=== PATIENT | male | born 1955 | race Caucasian/White ===

== ENCOUNTER 2020-01-29 11:39 | Outpatient (REF) | payer MEDICARE, SELFPAY ==
[2020-01-29 14:47] LABS: Alanine Aminotransferase 24 U/L (0-40); Albumin Level 4.3 g/dL (3.5-5.0); Alkaline Phosphatase 79 U/L (39-117); Anion Gap 14 (12-20); Aspartate Amino Transferase 22 U/L (5-37); Bilirubin Total 0.9 mg/dL (0.0-1.0); Blood Urea Nitrogen 10 mg/dL (9-16); Calcium 9.3 mg/dL (8.4-10.2); Carbon Dioxide 27 mmol/L (22-29); Chloride 99 mmol/L (96-108); Estimated Glomerular Filt Rate > 60; Glucose Random 92 mg/dL (60-115); Potassium 4.8 mmol/l (3.3-5.1); Sodium 135 mmol/L (135-145); Total Protein 7.5 g/dL (6.5-8.0)
== END 2020-01-29 11:40 | disposition home or self-care (01) ==
LOC: HO.10HDL 11:39
PROVIDERS: Visit Provider Family Medicine
DX: G62.9 Polyneuropathy, unspecified (principal)
CPT/HCPCS: 80053

== ENCOUNTER → 2022-05-19 08:45 | Outpatient (REF) | payer MEDICARE, SELFPAY ==
--- NOTE | 2022-05-19 08:52 | ECG_ITS ---
Test Reason : palpitations Blood Pressure : / mmHG Vent. Rate : 078 BPM Atrial Rate : 078 BPM P-R Int : 178 ms QRS Dur : 106 ms QT Int : 388 ms P-R-T Axes : 038 -24 023 degrees QTc Int : 442 ms Sinus rhythm with occasional Premature ventricular complexes Abnormal ECG No previous ECGs available Referred By: Camilo Brown Electronically Signed By:ALLYSSA CATHERINE
== END ==
LOC: HO.CARD 08:45
PROVIDERS: PCP Family Medicine; Visit Provider Family Medicine
DX: R00.2 Palpitations (principal)
CPT/HCPCS: 93005

== ENCOUNTER 2024-12-10 09:04 | Outpatient (AMB) | payer MEDICARE, SELFPAY ==
--- NOTE | 2024-12-10 09:12 | A.OFFPC_ITS ---
Vital Signs 12/10/24 09:14 Height 5 ft 7 in Weight 230 lb 3 oz BMI 36.0 BP 128/62 Blood Pressure Location Lt brachial Position Sitting Respiration 18 Pulse 76 Pulse Source Pulse Oximeter Temp 97.3 F Temp Source Temporal Artery Scan Pulse Oximetry (%) 96 Oxygen Delivery Method Room Air Intake Visit Reasons: new patient Compensation Consulting Manager Required: No Accompanied by: Self / Same As Patient Allergies Seasonal Allergies Allergy (Mild, Verified 12/10/24 09:37) Watery Eye Medication List - Last Reconciled 12/10/24 by Gita Rothman MD acetaminophen 500 mg PO Q6H PRN amlodipine 5 mg PO DAILY atorvastatin (Lipitor) 10 mg PO DAILY cetirizine (Zyrtec) 10 mg PO DAILY PRN coenzyme Q10 (CoQ-10) 100 mg PO DAILY finasteride 5 mg PO DAILY lorazepam 0.5 mg PO DAILY PRN tamsulosin 0.4 mg PO DAILY Tobacco use date assessed: 12/10/24 Fall risk assessment: No Falls in past year Last assessed Fall Risk: 12/10/24 Dental Screening Dental Screen Date: 12/10/24 Did you have a dental visit in the last 12 months?: Yes Did you have a dental problem in the last 6 months where you did not have access to dental care?: No Was dental information given to patient?: Patient has dentist HPI HPI Comments History of Present Illness Details Patient comes today to establish care as a new patient. He has hypertension which has been stable with medications. Complains of occasional muscle twitching involving both hands that happens on a daily basis and started years ago with no pain or numbness in hands. He also has pure hypercholesterolemia on statins and last cholesterol was stable but this will be repeated. On lorazepam for anxiety as needed. On tamsulosin for BPH and this is follow by Urology. Has class 2 obesity with a BMI of 36.1 and was advised to do diet and exercise as tolerated. [facility] Medical History (Updated 12/10/24 @ 09:54 by Gita Rothman MD) Fracture of left tibial plateau Tuberculosis Surgical History (Updated 12/10/24 @ 09:47 by Gita Rothman MD) History of surgery on lower extremity History of right hip replacement History of nephrectomy, right Family History Mother Diabetes Hypertension Arthritis Father Throat cancer Social History (Updated 12/10/24 @ 09:48 by Gita Rothman MD) Household Members: None Both parents involved: No Caregiver staying overnight: No Housing: House Alcohol intake: current Alcohol intake frequency: a few times a week Alcohol type: beer Patient Tobacco Use Status: Never used Tobacco e-Cigarette/Vaping Use: Never Used Advance Directives Date on File: 01/29/20 service: Yes Current occupational status: retired Cognitive needs: No Hearing needs: Yes Vision needs: Yes Questionnaire PHQ-9 Over the last 2 weeks, how often have you been bothered by any of the following problems? 1. Little interest or pleasure in doing things: not at all 2. Feeling down, depressed, or hopeless: not at all 3. Trouble falling or staying asleep, or sleeping too much: not at all 4. Feeling tired or having little energy: not at all 5. Poor appetite or overeating: not at all 6. Feeling bad about yourself - or that you are a failure or have let yourself or your family down: not at all 7. Trouble concentrating on things, such as reading the newspaper or watching television: not at all 8. Moving or speaking so slowly that other people could have noticed. Or the opposite - being so fidgety or restless that you have been moving around a lot more than usual: not at all 9. Thoughts that you would be better off or of hurting yourself in some way: not at all Total score: 0 Depression Screening Interpretation: Negative Depression Screening Done: Yes 83654 - PHQ-9 Billing: Yes Source: Developed by Drs. Miguel Rowe, Remedios Dillard, Brando Rg and colleagues, with an educational robert from [employer]. Thrive Questionnaire Date Thrive assessed: 12/10/24 I am a: Patient What is your living situation today?: I have a steady place to live Within the past 12 months, did the food you bought not last and you didn't have the money to get more?: Never true Within the past 12 months, did you worry whether your food would run out before you got money to buy more?: Never true Do you have trouble paying for medicines?: No Do you have trouble getting transportation to medical appointments?: No Do you have trouble paying your heating and electricity bill?: No Do you have trouble taking care of your child, family member or friend?: No Do you have trouble with day-to-day activities such as bathing, preparing meals, shopping, managing finances, etc.?: No Are you currently unemployed and looking for a job?: No Are you interested in more education?: Yes Please select the resources that you would like help with: None Currently or been in a relationship where the following occur: No concerns reported THRIVE Score: 0 AUDIT C Alcohol Use Questionnaire (AUDIT-C) 1. How often do you have a drink containing alcohol?: 2-3 times a week 2. How many drinks containing alcohol do you have on a typical day when you are drinking?: 1 or 2 3. How often do you have six or more drinks on one occasion?: Never Total Score: 3 JOANNA-7 AMB Questionnaire JOANNA-7 Date JOANNA - 7 assessed: 12/10/24 Feeling nervous, anxious, or on edge: 0 = Not at all Not being able to stop or control worryin = Not at all Worrying too much about different things: 0 = Not at all Trouble relaxin = Not at all Being so restless that it is hard to sit still: 0 = Not at all Becoming easily annoyed or irritable: 0 = Not at all Feeling afraid as if something awful might happen: 0 = Not at all Total JOANNA-7 score (0-4 normal; 5-9 mild; 10-14 moderate; 15-21 severe): 0 Source: Developed by Drs. Miguel Rowe, Remedios Dillard, Brando Rg and colleagues, with an educational robert from [employer]. Review of Systems Const All systems reviewed & are unremarkable except as noted in HPI and below Card Denies chest pain at rest, Denies chest pain with activity, Denies edema, Denies irregular heart rhythm, Denies claudication, Denies dyspnea, Denies dyspnea on exertion, Denies orthopnea, Denies paroxysmal nocturnal dyspnea and Denies slow heart rate Resp Denies cough, Denies dyspnea and Denies dyspnea on exertion GI Denies abdominal pain, Denies change in bowel habits, Denies excessive flatus, Denies nausea and Denies vomiting Denies urinary hesitancy, Denies urinary incontinence and Denies urinary urgency Musc Denies abnormal gait, Denies atrophy, Denies deformity and Denies limited range of motion Skin/Breast Denies bleeding lesions, Denies changing lesions and Denies rash Neuro Denies abnormal gait, Denies behavioral changes and Denies lack of coordination Psych Denies behavioral changes Physical exam (Primary Care) Vital Signs: Last Vital Signs Temp 97.3 F 12/10/24 09:14 Pulse 76 12/10/24 09:14 Resp 18 12/10/24 09:14 BP 128/62 12/10/24 09:14 Pulse Ox 96 12/10/24 09:14 Oxygen Delivery Method Room Air 12/10/24 09:14 BMI result Body Mass Index 36.0 Tobacco/Smoking Status: Tobacco use Status Tobacco use date assessed 12/10/24 12/10/24 09:35 Patient Tobacco Use Status Never used Tobacco 12/10/24 09:48 e-Cigarette/Vaping Use Never Used 12/10/24 09:48 PHQ-9: PHQ-9 Score PHQ-9: Total score 0 12/10/24 10:03 Depression Screening Interpretation: Negative Thrive Assessment: Date of Thrive Assessment Date Thrive assessed 12/10/24 12/10/24 09:35 Currently or been in a relationship where the following occur: No concerns reported Resp Effort & Inspection: normal respiratory effort Auscultation: clear to auscultation bilaterally Cardio Jugular venous distension: no JVD Rate: regular rate Rhythm: regular rhythm Heart sounds: S1 normal heart sound present and S2 normal heart sound present Extrem General: Yes full ROM Coding Level of Care Code New Pt Level 4 (81774) Complex EM visit Add On G2211 Diagnoses Essential hypertension I10 Pure hypercholesterolemia E78.00 BPH (benign prostatic hyperplasia) N40.0 Severe obesity with body mass index (BMI) of 36.0 to 36.9 with serious comorbidity E66.01; Z68.36 Macrocytic anemia D53.9 Muscle twitching R25.3 Additional Codes PHQ-9 - 12033 - PHQ-9 Billing: Yes ([id number]) Time Spent (min) 23 Assessment & Plan Assessment & Plan (1) Essential hypertension: Code(s): I10 - Essential (primary) hypertension Category: Medical (2) Pure hypercholesterolemia: Code(s): E78.00 - Pure hypercholesterolemia, unspecified Category: Medical (3) BPH (benign prostatic hyperplasia): Code(s): N40.0 - Benign prostatic hyperplasia without lower urinary tract symptoms Category: Medical (4) Severe obesity with body mass index (BMI) of 36.0 to 36.9 with serious comorbidity: Code(s): E66.01 - Morbid (severe) obesity due to excess calories; Z68.36 - Body mass index [BMI] 36.0-36.9, adult Category: Medical (5) Macrocytic anemia: Code(s): D53.9 - Nutritional anemia, unspecified Category: Medical (6) Muscle twitching: Code(s): R25.3 - Fasciculation Category: Medical Plan The patient will continue current management for hypertension and hypercholesterolemia with amlodipine and atorvastatin, respectively. For benign prostatic hyperplasia, the patient will maintain the use of finasteride and tamsulosin, with ongoing follow-up by his urologist. The patient is advised to continue dietary modifications and exercise to address class 2 obesity, with a goal of losing 30 pounds. A follow-up appointment will assess progress in weight management and consider alternative interventions if necessary. Microcytic anemia will be re-evaluated in four months, with consideration of vitamin levels if indicated. The patient will be referred to neurology for evaluation of muscle twitching in the hands. Patient was informed and verbally consented to the use of an ambient scribe for clinic note documentation during this visit. Orders: Orders Lipid Panel 4 Months E78.5 - Hyperlipidemia, unspecified Complete Blood Count Auto Diff 4 Months D64.9 - Anemia, unspecified Vitamin B12 and Folate 4 Months E53.8 - Deficiency of other specified B group vitamins IRON PROFILE 4 Months D64.9 - Anemia, unspecified Comprehensive [place]. Panel Fast 4 Months E66.01 - Morbid (severe) obesity due to excess calories, Z68.36 - Body mass index [BMI] 36.0-36.9, adult Referrals Neurology Referral R25.3 - Fasciculation
[2024-12-10 09:14] VITALS: BP 128/62; PULSE 76; RESP 18; TEMP 36.3; O2SAT 96; BMI 36.0
--- OUTSIDE RECORDS SUMMARY | 2024-12-10 09:46 | XMS_ITS | Clinical Summary ---
Author Organization [facility] ity Address [address] [place] [address] Care Team Providers Care Automated Process Operator Name Role Phone Unavailable Primary Care Provider Unavailabl e Social History Tobacco Use Types Packs/Day Years Used Date Smoking Tobacco: Never Assessed Sex and Gender Information Value Date Recorded Sex Assigned at Not on file Legal Sex Male 10:14 AM EST Gender Identity Not on file Sexual Orientation Not on file Plan of Treatment Health Maintenance Due Date Last Done Comments DTaP,Tdap,and Td Vaccines (1 - Tdap) 1974 Pneumococcal Vaccine: 50+ Ye ars (1 of 1 - PCV) 12/13/2003 Zoster Vaccines (1 of 2) 12/13/2003 COVID-19 Vaccine (1 - 2023-2 5 season) 2023 Depression Screening 04/23/2024 Abdominal Aortic Aneurysm (A AA) Screen 09/22/2024 Cholesterol Screening (Lipid Panel) 09/22/2024 Falls Risk Assessment 09/22/2024 Hepatitis C Screening 09/22/2024 Social Influencers of Health Screening 09/22/2024 Influenza Vaccine (#1) 2024 RSV Immunization Adult Patie nts (1 - 1-dose 75+ series) 2028 Colorectal Cancer Screening: Colonoscopy 09/22/2034 09/22/2024 HIB Vaccines Aged Out No longer eligi ble based on patient's age to complete this topic HPV Vaccines Aged Out No longer eligi ble based on patient's age to complete this topic Hepatitis A Vaccines Aged Out No long er eligible based on patient's age to complete this topic Hepatitis B Vaccines Aged Out No long er eligible based on patient's age to complete this topic IPV Vaccines Aged Out No longer eligi ble based on patient's age to complete this topic MMR Vaccines Aged Out No longer eligi ble based on patient's age to complete this topic Meningococcal ACWY Vaccine Aged Out N o longer eligible based on patient's age to complete this topic Meningococcal B Vaccine Aged Out No l onger eligible based on patient's age to complete this topic RSV Immunization Patients Un gagan 20 months Aged Out No longer eligible b ased on patient's age to complete this topic Varicella Vaccines Aged Out No longer eligible based on patient's age to complete this topic Procedures Procedure Name Priority Date/Time Associated Diagnosis Comments EXTERNAL COLONOSCOPY REPORT Routine 09/22/2024 1:17 PM EDT from Last 3 Months Results * External Colonoscopy Report (09/22/2024 1:17 PM EDT) Anatomical Region Laterality Modality Endoscopy us Historical Provider GI~PROCEDURE ORDERABLES F inal Result from Last 3 Months
== END 2024-12-10 10:00 | disposition home or self-care (01) ==
LOC: HO.HMCH 09:04
PROVIDERS: PCP Internal Medicine; Visit Provider Internal Medicine
DX: I10 Essential (primary) hypertension (principal); E78.00 Pure hypercholesterolemia, unspecified; N40.0 Benign prostatic hyperplasia without lower urinary tract symptoms; E66.01 Morbid (severe) obesity due to excess calories; Z68.36 Body mass index [BMI] 36.0-36.9, adult; D53.9 Nutritional anemia, unspecified; R25.3 Fasciculation

== ENCOUNTER → 2024-12-10 09:04 | Outpatient (BNVA) | payer MEDICARE, SELFPAY | PROVIDERS: PCP Internal Medicine; Visit Provider Internal Medicine | DX: I10 Essential (primary) hypertension (principal); E78.00 Pure hypercholesterolemia, unspecified; N40.0 Benign prostatic hyperplasia without lower urinary tract symptoms; E66.01 Morbid (severe) obesity due to excess calories; Z68.36 Body mass index [BMI] 36.0-36.9, adult; D53.9 Nutritional anemia, unspecified; R25.3 Fasciculation | CPT/HCPCS: 96127; 99202 ==

== ENCOUNTER 2025-03-26 08:09 | Outpatient (AMB) | payer MEDICARE, SELFPAY ==
[2025-03-26 08:11] VITALS: BP 142/80; PULSE 85; O2SAT 96; BMI 36.3
--- NOTE | 2025-03-26 08:11 | A.OFFVIS_ITS ---
Vital Signs 03/26/25 08:11 Height 5 ft 7 in Weight 231 lb 8 oz BMI 36.3 BP 142/80 H Blood Pressure Location Rt brachial Position Sitting Pulse 85 Pulse Source Pulse Oximeter Pulse Oximetry (%) 96 Oxygen Delivery Method Room Air Intake Visit Reasons: INP-Fasciculation Intake Note: Muscle twitching Market Risk Specialist Required: No Accompanied by: Self / Same As Patient Allergies Seasonal Allergies Allergy (Mild, Verified 03/26/25 08:11) Watery Eye HPI Comments Details: 69y/o male comes here for muscle twitches. He has had muscle twitches for more than 20 years but has worsened in the past 1 year. He describes the movements as sudden muscle twitch in hands and he drops what he is holding.He has 1-2 episodes a week . He had ight hip replacement 10 years ago and post op he notice shooting pain and tingling in his right foot.He reports intermittent paresthesias and worse when he is in bed. No problems in left leg . He denies back pain He had a cervical disc surgery 2 years ago - was diagnosed after he presented with neck pain. He still has some stiffness and some tingling in his right UE - shooting pain - usually when he sleeps . Sleep- snoring seasonal allergies wakes up with nocturia No abnormal twitches. [facility] Medical History (Updated 03/26/25 @ 08:50 by Caroline Gonzalez MD) Paresthesias Snoring Fracture of left tibial plateau Tuberculosis Surgical History History of surgery on lower extremity History of right hip replacement History of nephrectomy, right Family History Mother Diabetes Hypertension Arthritis Father Throat cancer Social History Household Members: None Both parents involved: No Caregiver staying overnight: No Housing: House Alcohol intake: current Alcohol intake frequency: a few times a week Alcohol type: beer Patient Tobacco Use Status: Never used Tobacco e-Cigarette/Vaping Use: Never Used Advance Directives Date on File: 01/29/20 service: Yes Current occupational status: retired Cognitive needs: No Hearing needs: Yes Vision needs: Yes Physical Exam Vital Signs: Last Vital Signs Pulse 85 03/26/25 08:11 BP 142/80 H 03/26/25 08:11 Pulse Ox 96 03/26/25 08:11 Oxygen Delivery Method Room Air 03/26/25 08:11 BMI result Body Mass Index 36.3 Const General: cooperative, healthy appearing, comfortable and no acute distress Nutritional Appearance: obese Orientation/consciousness: patient oriented x3 Eyes Pupils: Equal, round and reactive pupils present Neck Neck: Yes no meningeal signs Neuro General: patient oriented x3, gait normal, tone normal, moves all extremities, no meningeal signs and no focal motor deficits Cranial nerves: Yes Facial sensation intact/muscles of mastication intact, Yes Equal, round and reactive pupils present, Yes Bilaterally intact EOM present, Yes Nystagmus not present, Yes Normal facial strength present, Yes Midline tongue present, Yes Symmetric palate elevation present and Yes Ability to bilaterally elevate shoulders present Cognition (Neuro): normal cognition Gait exam (Neuro): Antalgic gait present Motor exam (neuro): 5/5 motor strength present throughout and Normal motor muscle tone present throughout Deep tendon reflexes (DTR's): Right triceps reflex intensity grade: 3+, Left triceps reflex intensity grade: 3+, Rt Biceps (C5, C6): 2+, Left biceps reflex intensity grade: 2+, Right brachioradialis reflex intensity grade: 2+, Left brachioradialis reflex intensity grade: 1+, Right patellar reflex intensity grade: 2+ and Left patellar reflex intensity grade: 2+ Coordination: [id number] test normal Assessment & Plan Assessment & Plan (1) Muscle twitching: Comment: ? related to cervical spinal stenosis Code(s): R25.3 - Fasciculation Category: Medical (2) Snoring: Code(s): R06.83 - Snoring Category: Medical (3) Paresthesias: Comment: Right Ue and Right LE - radiculopathy ? Code(s): R20.2 - Paresthesia of skin Category: Medical Plan I will evaluate him with C spine MRI EMG NCS UE Home sleep test to r/o sleep apnea will evaluate his Right LE paersthesias during next visit with EMG an dpossibel MRI L spine Orders: Orders MR cervical spine wo con Today M48.02 - Spinal stenosis, cervical region, R25.3 - Fasciculation NE nerve conduction velocity Today R20.2 - Paresthesia of skin, R25.3 - Fasciculation NE electromyogram (EMG) Today R20.2 - Paresthesia of skin, R25.3 - Fasciculation RT home sleep study Today E66.01 - Morbid (severe) obesity due to excess calories, I10 - Essential (primary) hypertension, R06.83 - Snoring, Z68.36 - Body mass index [BMI] 36.0-36.9, adult Coding Level of Care Code New Pt Level 4 (46030) Complex visit Add On G2211 Diagnoses Muscle twitching R25.3 Snoring R06.83 Paresthesias R20.2
== END 2025-03-26 08:58 | disposition home or self-care (01) ==
LOC: HO.HSMS 08:10
PROVIDERS: PCP Internal Medicine; Visit Provider Psychiatry & Neurology Neurology
DX: R25.3 Fasciculation (principal); R06.83 Snoring; R20.2 Paresthesia of skin
CPT/HCPCS: 99204; G2211

== ENCOUNTER → 2025-03-26 08:09 | Outpatient (BNVA) | payer MEDICARE, SELFPAY | PROVIDERS: PCP Internal Medicine; Visit Provider Psychiatry & Neurology Neurology | DX: R25.3 Fasciculation (principal); R06.83 Snoring; R20.2 Paresthesia of skin; E66.01 Morbid (severe) obesity due to excess calories | CPT/HCPCS: 99202 ==

== ENCOUNTER 2025-04-13 08:05 | Outpatient (REF) | payer MEDICARE, SELFPAY ==
--- OUTSIDE RECORDS SUMMARY | 2025-04-13 08:12 | XMS_ITS | Clinical Summary ---
Author Organization [facility] ity Address [address] [place] [address] Care Team Providers Care Elderly Caregiver Name Role Phone Unavailable Primary Care Provider [...] 12/13/2003 Zoster Vaccines (1 of 2) 12/13/2003 Depression Screening 04/23/2024 Abdominal Aortic Aneurysm (A AA) Screen 09/22/2024 Cholesterol Screening (Lipid Panel) 09/22/2024 Falls Risk Assessment 09/22/2024 Hepatitis C Screening 09/22/2024 Social Influencers of Health Screening 09/22/2024 COVID-19 Vaccine (1 - 2024-2 6 season) 2024 Influenza Vaccine (#1) 2024 RSV Immunization Adult [...] 1:17 PM EDT from Last 3 Months or Most Recently Relevant to Health Maintenance Results * External Colonoscopy Report (09/22/2024 1:17 PM EDT) Anatomical Region Laterality Modality Endoscopy us Historical Provider GI~PROCEDURE ORDERABLES F inal Result from Last 3 Months or Most Recently Relevant to Health Maintenance
[2025-04-13 08:16] LABS: MANUAL DIFF FLAG NO
[2025-04-13 08:40] LABS: Hematocrit 46.1 % (42.0-52.0); Hemoglobin 15.3 g/dl (14.0-18.0); Imm Gran Abs Auto 0.04 X10*3/uL (0.00-0.03); Imm Gran Pct Auto 0.4 % (0.0-0.4); Lymphocytes Absolute Auto 2.9 X10*3/uL (1.2-4.9); Mean Corpuscular HGB Conc 33.2 g/dl (31.0-36.0); Mean Corpuscular Hemoglobin 31.5 pg (27.0-33.0); Mean Corpuscular Volume 95.1 fL (80.0-98.0); NRBC Abs Auto 0.000 X10*3/uL (0.0-0.012); NRBC Pct Auto 0.0 /100WBC (0.0-0.2); Platelet Count 233 X10*3/uL (160-400); Red Blood Count 4.85 X10*6/uL (4.60-5.80); White Blood Count 9.5 X10*3/uL (4.8-10.8)
[2025-04-13 09:08] LABS: Alanine Aminotransferase 21 U/L (0-40); Albumin Level 4.5 g/dL (3.5-5.0); Alkaline Phosphatase 84 U/L (39-117); Anion Gap 11 (12-20); Aspartate Amino Transferase 21 U/L (5-37); Blood Urea Nitrogen 9 mg/dL (9-16); Calcium 9.2 mg/dL (8.4-10.2); Carbon Dioxide 27 mmol/L (22-29); Chloride 105 mmol/L (96-108); Cholesterol 182 mg/dL (<200); Estimated Glomerular Filt Rate > 60; HDL Cholesterol 71 mg/dL (>40); Iron 102 mcg/dL (45-160); Percent Iron Saturation 39 % (15-50); Potassium 4.5 mmol/L (3.3-5.1); Sodium 138 mmol/L (135-145); Total Iron Binding Capacity 260 mcg/dL (228-428); Total Protein 7.3 g/dL (6.5-8.0); Triglycerides 60 mg/dL (<150); Unsaturated Iron Binding 158 ug/dL
[2025-04-13 09:52] LABS: Folate 8.4 ng/mL (> or = 4.0); Vitamin B12 321 pg/mL (200-900)
== END 2025-04-13 08:06 | disposition home or self-care (01) ==
LOC: HO.LAB 08:05
PROVIDERS: PCP Internal Medicine; Visit Provider Internal Medicine
DX: E53.8 Deficiency of other specified B group vitamins (principal); E66.01 Morbid (severe) obesity due to excess calories; D64.9 Anemia, unspecified; E78.5 Hyperlipidemia, unspecified; Z68.36 Body mass index [BMI] 36.0-36.9, adult
CPT/HCPCS: 36415; 80053; 80061; 82607; 82746; 83540; 85025

== ENCOUNTER 2025-04-19 09:00 | Outpatient (REF) | payer MEDICARE, SELFPAY ==
--- NOTE | ~2025-04-19 | MR_ITS ---
CLINICAL HISTORY: R25.3 - Fasciculation MR cervical spine without gadolinium Comparison: None provided Findings: Status post surgical fusion extending from C4 through C6. Appropriate alignment. No evidence of hardware failure. Normal vertebral body alignment. No acute fractures or pathologic bone lesions. C2-C3: Tiny central disc bulge. No central canal or neural foraminal narrowing. C3-C4: 5 mm central disc protrusion with moderate mass effect on the cervical spinal cord. Moderate bilateral facet osteoarthritis. Moderately severe bilateral neural foraminal stenosis. C4-C5: There is a large disc osteophyte complex versus central disc protrusion with severe mass effect on the cervical spinal cord. There is extensive abnormal T2 hyperintensity within the cervical spinal cord at this level. There is bilateral facet osteoarthritis. There is mild narrowing of bilateral neural foramina. C5-C6: There is a disc osteophyte complex predominating on the right. Mild mass effect on the cervical spinal cord. Moderate stenosis of bilateral neural foramina, [id number]. C6-C7: There is a disc osteophyte complex, predominating on the left with mild mass effect on the left anterior aspect of the cervical spinal cord. Mild narrowing of bilateral neural foramina. C7-T1: No significant central canal or neural foraminal narrowing. No acute findings on limited view of the intracranial contents. No cervical fluid collections or masses. IMPRESSION: 1. Multilevel spondylosis with mass effect on the cervical spinal cord at multiple levels. This is most pronounced at C4-C5 where there is severe mass effect on the cord. There is also T2 hyperintensity within the cord at this level suggesting myelomalacia. This document has been electronically signed by: Aaliyah Bhatti MD on 04/19/2025 12:00:24
--- OUTSIDE RECORDS SUMMARY | 2025-04-19 09:08 | XMS_ITS | Clinical Summary ---
Author Organization [facility] ity Address [address] [place] [address] Care Team Providers Care Sales Administration Specialist Name Role Phone Unavailable Primary Care Provider [...]
== END 2025-04-19 09:01 | disposition home or self-care (01) ==
LOC: HO.MRI 09:00
PROVIDERS: Visit Provider Psychiatry & Neurology Neurology
DX: R25.3 Fasciculation (principal); M48.02 Spinal stenosis, cervical region
CPT/HCPCS: 72141

== ENCOUNTER → 2025-04-19 09:07 | Outpatient (BNV) | payer MEDICARE, SELFPAY | PROVIDERS: Visit Provider Radiology Diagnostic Radiology | DX: M47.812 Spondylosis without myelopathy or radiculopathy, cervical region (principal); R90.89 Other abnormal findings on diagnostic imaging of central nervous system | CPT/HCPCS: 72141 ==

== ENCOUNTER 2025-04-20 07:48 | Outpatient (AMB) | payer MEDICARE, SELFPAY ==
--- OUTSIDE RECORDS SUMMARY | 2025-04-20 07:53 | XMS_ITS | Clinical Summary ---
Author Organization [facility] ity Address [address] [place] [address] Care Team Providers Care French Drawer Name Role Phone Unavailable Primary Care Provider [...]
--- NOTE | 2025-04-20 07:54 | A.OFFPC_ITS ---
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: No Accompanied by: Self / Same As Patient Allergies Seasonal Allergies Allergy (Mild, Verified 04/20/25 08:07) Watery Eye Medication List - Last Reconciled 04/20/25 by Gita Rothman MD acetaminophen 500 mg PO Q6H PRN amlodipine 5 mg PO DAILY atorvastatin (Lipitor) 10 mg PO DAILY cetirizine (Zyrtec) 10 mg PO DAILY PRN coenzyme Q10 (CoQ-10) 100 mg PO DAILY finasteride 5 mg PO DAILY lorazepam 0.5 mg PO DAILY PRN tamsulosin 0.4 mg PO DAILY Tobacco use date assessed: 12/10/24 Fall risk assessment: No Falls in past year Last assessed Fall Risk: 04/20/25 Dental Screening Dental Screen Date: 12/10/24 HPI HPI Comments History of Present Illness Details This is a 69-year-old male with hypertension, pure hypercholesterolemia, BPH and paresthesias that comes today for follow-up on his conditions. Blood pressure borderline elevated but at home it was less than 130/80. Cholesterol well controlled with statins and reports no side effects. On tamsulosin for his benign prostatic hyperplasia. Labs were discussed and were with no significant abnormality. Still complains of right upper and lower extremity paresthesias and had an MRI of the neck yesterday which shows some spondylosis and stenosis. Paresthesias are follow by Neurology. Sleep study is pending. He is obese with a BMI of 36 and was advised to do diet and exercise to reach BMI goal less than 30. He does have anxiety and panic attacks in which lorazepam helps. Complains of bilateral ankle swelling most likely secondary to amlodipine. [facility] Medical History Paresthesias Snoring Fracture of left tibial plateau Tuberculosis Surgical History History of surgery on lower extremity History of right hip replacement History of nephrectomy, right Family History (Updated 04/20/25 @ 08:16 by Gita Rothman MD) Mother Diabetes Hypertension Arthritis Father Throat cancer Daughter Breast cancer Social History Household Members: None Both parents involved: No Caregiver staying overnight: No Housing: House Alcohol intake: current Alcohol intake frequency: a few times a week Alcohol type: beer Patient Tobacco Use Status: Never used Tobacco e-Cigarette/Vaping Use: Never Used Advance Directives Date on File: 01/29/20 service: Yes Current occupational status: retired Cognitive needs: No Hearing needs: Yes Vision needs: Yes Questionnaire Thrive Questionnaire Date Thrive assessed: 12/10/24 I am a: Patient What is your living situation today?: I have a steady place to live Within the past 12 months, did the food you bought not last and you didn't have the money to get more?: Never true Within the past 12 months, did you worry whether your food would run out before you got money to buy more?: Never true Do you have trouble paying for medicines?: No Do you have trouble getting transportation to medical appointments?: No Do you have trouble paying your heating and electricity bill?: No Do you have trouble taking care of your child, family member or friend?: No Do you have trouble with day-to-day activities such as bathing, preparing meals, shopping, managing finances, etc.?: No Are you currently unemployed and looking for a job?: No Are you interested in more education?: Yes Currently or been in a relationship where the following occur: No concerns reported THRIVE Score: 0 JOANNA-7 AMB Questionnaire JOANNA-7 Date JOANNA - 7 assessed: 12/10/24 Source: Developed by Drs. Miguel Rowe, Remedios Dillard, Brando Rg and colleagues, with an educational robert from [employer]. Review of Systems Const All systems reviewed & are unremarkable except as noted in HPI and below Card Denies chest pain at rest, Denies chest pain with activity, Denies edema, Denies irregular heart rhythm, Denies claudication, Denies dyspnea, Denies dyspnea on exertion, Denies orthopnea, Denies paroxysmal nocturnal dyspnea and Denies slow heart rate Resp Denies cough, Denies dyspnea and Denies dyspnea on exertion GI Denies abdominal pain, Denies change in bowel habits, Denies excessive flatus, Denies nausea and Denies vomiting Physical exam (Primary Care) Vital Signs: Last Vital Signs Temp 98.8 F 04/20/25 07:56 Pulse 81 04/20/25 07:56 Resp 18 04/20/25 07:56 BP 148/76 H 04/20/25 07:56 Pulse Ox 98 04/20/25 07:56 Oxygen Delivery Method Room Air 04/20/25 07:56 BMI result Body Mass Index 36.0 BMI Assessment/Plan discussion: High BMI High, discussed plan: lifestyle, weight reduction, dietary and physical activity Tobacco/Smoking Status: Tobacco use Status Tobacco use date assessed 12/10/24 04/20/25 07:54 Patient Tobacco Use Status Never used Tobacco 04/20/25 07:54 e-Cigarette/Vaping Use Never Used 04/20/25 07:54 Thrive Assessment: Date of Thrive Assessment Date Thrive assessed 12/10/24 04/20/25 07:54 Currently or been in a relationship where the following occur: No concerns reported Resp Effort & Inspection: normal respiratory effort Auscultation: clear to auscultation bilaterally Cardio Jugular venous distension: no JVD Rate: regular rate Rhythm: regular rhythm Heart sounds: S1 normal heart sound present and S2 normal heart sound present Extrem General: Yes full ROM Coding Level of Care Code Add On Preventative Visit Only Diagnoses Essential hypertension I10 Pure hypercholesterolemia E78.00 BPH (benign prostatic hyperplasia) N40.0 Paresthesias R20.2 Time Spent (min) 23 Assessment & Plan Assessment & Plan (1) Essential hypertension: Code(s): I10 - Essential (primary) hypertension Category: Medical (2) Pure hypercholesterolemia: Code(s): E78.00 - Pure hypercholesterolemia, unspecified Category: Medical (3) BPH (benign prostatic hyperplasia): Code(s): N40.0 - Benign prostatic hyperplasia without lower urinary tract symptoms Category: Medical (4) Paresthesias: Comment: Right Ue and Right LE - radiculopathy ? Code(s): R20.2 - Paresthesia of skin Category: Medical Plan Continue same medications. Sleep study pending. Follow-up with Neurology for paresthesias. Keep blood pressure less than 130/80. Start diet and exercise to reach BMI goal less than 30. Orders: Orders Lipid Panel 5 Months E78.5 - Hyperlipidemia, unspecified Comprehensive [place]. Panel Fast 5 Months R20.2 - Paresthesia of skin
[2025-04-20 07:56] VITALS: BP 148/76; PULSE 81; RESP 18; TEMP 37.1; O2SAT 98; BMI 36.0
[2025-04-20 08:16] VITALS: BP 129/74
== END 2025-04-20 08:21 | disposition home or self-care (01) ==
LOC: HO.HMCH 07:49
PROVIDERS: PCP Internal Medicine; Visit Provider Internal Medicine
DX: I10 Essential (primary) hypertension (principal); E78.00 Pure hypercholesterolemia, unspecified; N40.0 Benign prostatic hyperplasia without lower urinary tract symptoms; R20.2 Paresthesia of skin

== ENCOUNTER → 2025-04-20 07:48 | Outpatient (BNVA) | payer MEDICARE, SELFPAY | PROVIDERS: PCP Internal Medicine; Visit Provider Internal Medicine | DX: I10 Essential (primary) hypertension (principal); E78.00 Pure hypercholesterolemia, unspecified; N40.0 Benign prostatic hyperplasia without lower urinary tract symptoms; R20.2 Paresthesia of skin | CPT/HCPCS: 99212 ==